=== PATIENT | female | born 1990 | race Caucasian/White ===

== ENCOUNTER 2022-11-24 17:48 | Emergency (ER) | payer OTHER, SELFPAY ==
[2022-11-24 18:01] VITALS: BP 124/80; PULSE 79; RESP 16; TEMP 36.8; O2SAT 99
--- NOTE | 2022-11-24 19:58 | PC.NURSE ---
pt states she is leaving and will followup with pmd tomorrow. ambulated from er without difficulty
== END 2022-11-24 21:02 | disposition left against medical advice (07) ==
DX: K61.1 Rectal abscess (principal)
CPT/HCPCS: 99199